=== PATIENT | male | born 1995 | race Hispanic/Latino ===

== ENCOUNTER 2017-11-22 09:45 | Emergency (ER) | payer SELFPAY ==
[2017-11-22 11:14] LABS: #Basophils 0.1 thou/uL (0.0-0.2); #Lymphocytes 1.9 thou/uL (1.20-3.40); #Monocytes 0.3 thou/uL (0.11-0.59); #Neutrophils 3.5 thou/uL (1.40-6.50); %Basophils 0.9 % (0.0-1.0); %Eosinophils 0.8 % (0.0-10.0); %Lymphocytes 32.9 % (21.0-51.0); %Monocytes 4.9 % (0.0-10.0); %Neutrophils 60.5 % (42.0-75.0); Hemoglobin 15.8 g/dL (14.0-18.0); Mean Corpuscular HGB CONC 34.1 g/dL (32.0-36.0); Mean Corpuscular Hemoglobin 31.5 pg (27.0-31.0); Mean Corpuscular Volume 92.4 fL (78.0-98.0); Platelet Count 241 thou/uL (130-400); RBC Distribution Width 11.1 % (11.5-14.5); Red Blood Cell (RBC) Count 5.02 mill/uL (4.70-6.10); White Blood Cell (WBC) Count 5.8 thou/uL (4.8-10.8)
[2017-11-22 11:43] LABS: ALT (SGPT) 12 U/L (8-55); AST (SGOT) 21 U/L (5-34); Albumin 4.5 g/dL (3.5-5.0); Alkaline Phosphatase 103 U/L (40-150); Anion Gap 9 mmol/L (10-20); BUN (Urea Nitrogen) 11 mg/dL (8.9-20.6); Bilirubin, Total 0.5 mg/dL (0.2-1.2); Calc. Creatinine Clearance 0 mL/min (70-130); Calcium 9.6 mg/dL (7.8-10.44); Carbon Dioxide 27 mmol/L (22-29); Chloride 106 mmol/L (98-107); Estimated GFR-MDRD Greater than 90; Globulin 2.8 g/dL (2.4-3.5); Glucose 92 mg/dL (70-105); Potassium 4.2 mmol/L (3.5-5.1); Protein, Total 7.3 g/dL (6.0-8.3); Sodium 138 mmol/L (136-145)
--- NOTE | 2017-11-22 13:02 | CT ---
CT ABDOMEN AND PELVIS WITH CONTRAST: Comparison: None. History: Right upper quadrant abdominal pain. Technique: Multiple contiguous axial images were obtained in a CT of the abdomen and pelvis with cont rast. PO contrast was administered. Coronal reformats were performed. FINDINGS: The liver, gallbladder, kidneys, adrenal glands, spleen, and pancreas are unremarkable. No free air, free fluid, or stranding changes are seen in the abdomen or pelvis. The large and small bowel are unremarkable. The appendix is normal. No abdominal or pelvic lymphadeno sue are seen. The visualized inferior thorax, abdominal wall soft tissues, and osseous structures are unremarkable. IMPRESSION: No evidence of acute intraabdominal/pelvic abnormality. POS: [facility]
[2017-11-22] MEDS ORDERED: Iopamidol 370 76% 50 ML VIAL FS ONE (14:19)
[2017-11-22] MEDS ORDERED: ISOVUE-370 76%-LOCM 1 ML ONE (14:19)
== END 2017-11-22 13:12 | disposition home or self-care (01) ==
LOC: ERS 09:45
DX: K40.90 Unilateral inguinal hernia, without obstruction or gangrene, not specified as recurrent (principal); F17.210 Nicotine dependence, cigarettes, uncomplicated
CPT/HCPCS: 36415; 74177; 80053; 83605; 85025; J2270

== ENCOUNTER 2017-11-28 15:12 | Outpatient (CLI) | payer OTHER | END 2017-11-28 15:13 | disposition home or self-care (01) | LOC: LABBT 15:12 | PROVIDERS: ATTEND Surgery | DX: Z01.812 Encounter for preprocedural laboratory examination (principal); K40.90 Unilateral inguinal hernia, without obstruction or gangrene, not specified as recurrent ==

== ENCOUNTER 2017-12-01 09:04 | Day surgery (SDC) | payer OTHER ==
[2017-11-28 15:30] VITALS: BMI 20.6
[2017-12-01] MEDS ORDERED: CEFAZOLIN/Water 2 GM/20 ML SYRINGE ONE (09:51)
[2017-12-01] MEDS ORDERED: Ondansetron HCl/PF 4 MG/2 ML Vial ONE (10:14)
[2017-12-01] MEDS ORDERED: Dexamethasone 20 MG/5 ML VIAL ONE (10:14)
[2017-12-01] MEDS ORDERED: PROPOFOL 200 MG/20 ML VIAL ONE (10:14)
[2017-12-01] MEDS ORDERED: Ketorolac Tromethamine 30 MG/ML VIAL ONE (10:14)
[2017-12-01] MEDS ORDERED: Lidocaine 1% PF 5 ML VIAL ONE (10:14)
[2017-12-01] MEDS ORDERED: Metoclopramide HCl 10 MG/2 ML VIAL ONE (10:14)
[2017-12-01] MEDS ORDERED: Bupivacaine/Epinephrine 0.25% 30 ML VIAL ONE (10:55)
[2017-12-01] MEDS ORDERED: HYDROmorphone 0.5 MG/0.5 ML SYRINGE ONE (10:58)
[2017-12-01] MEDS ORDERED: Fentanyl 100 MCG/2 ML VIAL ONE (10:58)
[2017-12-01] MEDS ORDERED: Midazolam HCl 2 mg/2 ml Vial ONE (11:04)
--- NOTE | 2017-12-01 12:22 | OP ---
DATE OF PROCEDURE: 12/01/2017 PREOPERATIVE DIAGNOSIS: Right inguinal hernia. SURGEON: Tra Luis M.D. PROCEDURE PERFORMED: Right inguinal hernia repair with mesh. INDICATIONS: A 22-year-old male who came to the emergency room with an incarcerated right inguinal h ernia that was reduced. FINDINGS: Right direct inguinal hernia. DESCRIPTION OF PROCEDURE: After informed consent was obtained, the patient was taken to the operatin g room and given general mask anesthesia and placed in supine position. The abdomen was prepped and draped in usual fashion. Local anesthesia infiltrated subcutaneously and deep. Transverse inguinal incision was performed. Subcu divided sharply. Fascia and external oblique was incised in direction of its fibers through the external ring. Spermatic cord isolated with a [place] drain. Cremasteric fibers . There was no indirect component. There was a direct inguinal hernia that was cir cumscribed and reduced. Reduction maintained with a PHS hernia system placed in the preperitoneal sp graciela. Anterior was laid out, sutured to the pubic tubercle medially with a 2-0 Prolene suture, tucked under the external oblique fascia laterally. A notch was cut out for the spermatic cord. Hemostasi s was assured. The external oblique fascia closed with a running 3-0 Vicryl. Coleman's closed with i nterrupted 3-0 Vicryl and skin closed with a running subcuticular 4-0 Rapide. Steri-Strips applied. Sterile bandage applied. The patient tolerated the procedure well and was transferred to recovery i n good condition. Sponge and needle count verified correct x2.
[2017-12-01] MEDS ORDERED: HYDROcodone/Acetaminophen 5/325 mg Tablet ONE (14:07)
== END 2017-12-01 14:50 | disposition home or self-care (01) ==
LOC: SDC 09:04
PROVIDERS: ATTEND Surgery
PROC: 0YU50JZ Supplement Right Inguinal Region with Synthetic Substitute, Open Approach (ICD-10-PCS; principal; 2017-12-01)
DX: K40.90 Unilateral inguinal hernia, without obstruction or gangrene, not specified as recurrent (principal)
CPT/HCPCS: C1781; J0131; J1100; J1170; J1885; J2001; J2250; J2405; J2704; J2765; J3010

== ENCOUNTER 2020-07-25 21:18 | Inpatient (IN) | payer BC, SELFPAY ==
[~2020-07-25 21:18] MED LIST: Iopamidol-370 76% 500 ML 1 ML ONE
[2020-07-25] MEDS ORDERED: Succinylcholine 200 MG/10 ml SYRINGE FS ONE (21:19)
[2020-07-25] MEDS ORDERED: Tranexamic Acid 1,000 MG/10 ML VIAL ONE (21:25)
[2020-07-25] MEDS ORDERED: Midazolam HCl 2 mg/2 ml Vial ONE (21:30)
[2020-07-25] MEDS ORDERED: Propofol 1,000 MG/100 ML VIAL IV ONE (21:30)
[2020-07-25] MEDS ORDERED: Midazolam HCl 5 mg/ml Vial ONE (21:38)
--- NOTE | 2020-07-25 21:47 | RAD ---
Frontal radiograph chest: 07/25/2020 COMPARISON: None HISTORY: Injury, trauma, pain FINDINGS: There is a nasogastric tube extending into the left upper quadrant. There is an endotrachea l tube in place. There is nonspecific linear interstitial opacity in the perihilar regions and both lung bases, right greater than left. Supine imaging limits assessment for pneumothorax and pleural fl uid. There is a probable lateral left-sided pneumothorax. The patient appears rotated slightly to the right. Nondisplaced seventh and eighth rib fractures are suspected laterally on the right. IMPRESSION: Lines and tubes as detailed above. Interstitial and alveolar opacity, right greater than left. Right-sided rib fractures are noted. Parenchymal opacity may be on the basis of pulmonary contusion, aspiration, or infectious pneumonitis. Possible lateral left-sided pneumothorax. Chest CT advised. Results called to Dr. Beebe 9:44 PM 07/25/2020
[2020-07-25 21:56] LABS: Hemoglobin 14.5 g/dL (14.0-18.0); Mean Corpuscular HGB CONC 32.9 g/dL (32.0-36.0); Mean Corpuscular Hemoglobin 31.7 pg (27.0-31.0); Mean Corpuscular Volume 96.4 fL (78.0-98.0); Mean Platelet Volume 7.6 fL (7.4-10.4); Platelet Count 265 thou/uL (130-400); RBC Distribution Width 11.1 % (11.5-14.5); Red Blood Cell (RBC) Count 4.58 mill/uL (4.70-6.10); White Blood Cell (WBC) Count 25.7 thou/uL (4.8-10.8)
[2020-07-25 21:59] LABS: Medtox Reader # READER 4; THC/Cannabinoid Screen Detected (NotDetected)
[2020-07-25 22:00] LABS: Amphetamine Not Detected (NotDetected); Barbiturates Screen Not Detected (NotDetected); Benzodiazepine Screen Not Detected (NotDetected); Cocaine Metabolite Screen Not Detected (NotDetected); Medtox Control Line Valid? VALID (VALID); Methadone Not Detected (NotDetected); Methamphetamine Not Detected (NotDetected); Opiate Screen Not Detected (NotDetected); Oxycodone Screen Not Detected (NotDetected); Phencyclidine (PCP) Not Detected (NotDetected); Tricyclic Screen Not Detected (NotDetected)
[2020-07-25 22:02] LABS: INR-International Normal Ratio 1.2; PTT 28.1 sec (22.9-36.1); Prothrombin Time 15.2 sec (12.0-14.7)
--- NOTE | 2020-07-25 22:03 | CT ---
Head CT without contrast: 07/25/2020 COMPARISON: 09/14/2014 HISTORY: Injury, trauma, pain TECHNIQUE: Axial CT imaging at 2.5 mm intervals from vertex through skull base without contrast. Kathleen nal and sagittal reformatted imaging obtained. FINDINGS: The right lateral incisor associated with the mandible appears disrupted at its base. There is periorbital and infraorbital soft tissue swelling on the left as well as supraorbital soft tissue swelling on the left. Multifocal scalp swelling noted superiorly, most prominent posteriorly n ear the vertex on the right. There is no intracranial hemorrhage. There is no midline shift or mass effect. The visualized paranasal sinuses/mastoid air cells appear well-aerated. There is no displaced calvari al fracture. IMPRESSION: No intracranial hemorrhage. Soft tissue injuries as detailed above. No displaced calvaria l fracture. Results called to Dr. Beebe at approximately 10:00 PM 07/25/2020
[2020-07-25 22:05] LABS: Bilirubin Negative (Negative); Blood, Urine 2+ (Negative); Clarity Clear (Clear); Glucose, Urine (Dipstick) Normal (Negative); Ketone, Urine Negative (Negative); Leukocyte Negative Leu/uL (Negative); Nitrite Negative (Negative); Protein, Urine (Dipstick) 70 mg/dL (Neg-Trace); RBC/HPF 0-3 HPF (0-3); Specific Gravity, Urine 1.004 (1.002-1.036); Squamous Epithelial None Seen HPF (0-3); Urobilinogen Normal mg/dL (Less than 2)
--- NOTE | 2020-07-25 22:06 | CT ---
Cervical spine CT without contrast: 07/25/2020 HISTORY: Injury, trauma TECHNIQUE: Axial CT imaging at 1.25 mm intervals through the cervical spine with coronal and sagittal reformatted imaging FINDINGS: The C1 ring is intact. The craniocervical junction, the atlantoaxial interspace, and the cervicothoracic junction demonstrat e no acute findings. The occipital condyles, the dens, and the C1-2 articulation appear within normal limits. Incompletely imaged endotracheal tube and nasogastric tube present. Visualized lung apices demonstrate a left-sided pneumothorax as well as extensive nonspecific airspac e disease within the right lung apex. No displaced cervical spine fracture or evidence of dislocation. IMPRESSION: Left pneumothorax with extensive right upper lobe airspace disease. No displaced cervical spine fracture or dislocation. Results called to Dr. Beebe at 10:00 PM 07/25/2020
--- NOTE | 2020-07-25 22:09 | CT ---
CT facial bones: 07/25/2020 COMPARISON: None HISTORY: Injury, trauma, pain TECHNIQUE: Axial CT imaging at 2.5 mm intervals through the facial bones with coronal and sagittal re formatted imaging. FINDINGS: There is supraorbital soft tissue swelling on the left. There is periorbital and infraorbit al soft tissue swelling on the left. There is incompletely imaged endotracheal tube and nasogastric tube noted. There is scalp swelling ne ar the vertex posteriorly on the right and laterally on the left. The frontal sinuses, maxillary sinuses, sphenoid sinuses, and the ethmoid air cells appear well-aerat ed. The nasal bones, the zygomatic arches, and the pterygoid plates appear intact. Neither temporomandibu lar joint appears dislocated. No evidence for a mandibular fracture is seen. The lateral incisor associated with the mandible on the right is disrupted at its root. Coronal reformatted imaging demonstrates no evidence for fracture of the orbital floor or the medial orbital wall on either side. IMPRESSION: No facial bone fracture noted.
[2020-07-25 22:10] LABS: ALT (SGPT) 197 U/L (8-55); AST (SGOT) 337 U/L (5-34); Albumin 4.3 g/dL (3.5-5.0); Alcohol 307 mg/dL (Less than 10); Alkaline Phosphatase 116 U/L (40-110); Anion Gap 19 mmol/L (10-20); BUN (Urea Nitrogen) 13 mg/dL (8.9-20.6); Bilirubin, Total 0.4 mg/dL (0.2-1.2); Calc. Creatinine Clearance 0 mL/min (70-130); Calcium 8.3 mg/dL (7.8-10.44); Carbon Dioxide 17 mmol/L (22-29); Chloride 108 mmol/L (98-107); Glucose 178 mg/dL (70-105); Lipase 75 U/L (8-78); Potassium 3.7 mmol/L (3.5-5.1); Protein, Total 7.3 g/dL (6.0-8.3); Sodium 140 mmol/L (136-145)
[2020-07-25] MEDS ORDERED: Boostrix 0.5 ML (Tdap) VIAL ONE (22:12)
[2020-07-25 22:14] LABS: Band 3 % (5-11); Lymphocytes 33 % (21-51); MDiff Complete? YES; Monocytes 6 % (0-10); Neutrophil 58 % (42-75); Platelet Morphology Comment Appears Adequate; RBC Morphology Normal
[2020-07-25] MEDS ORDERED: Bupivacaine 0.5% 10 ML VIAL ONE (22:16)
[2020-07-25] MEDS ORDERED: Lidocaine 1% w/Epinephrine 1:100K 20 ML VIAL ONE (22:16)
[2020-07-25 22:17] LABS: Actual Bicarbonate (HCO3a) 17.9 mEq/L (22-28); Analyzer IN Cardio ER; Base Excess (BEa) -9.4 mEq/L (-2.0 to +3.0); CO2 Tension 44.1 mmHg (35.0-45.0); Calcium, Ionized (arterial) 1.13 mmol/L (1.12-1.30); Carboxyhemoglobin (COHb) 0.1 gm% (0.0-3.0); Hemoglobin (Hb) 13.4 g/dL (14.0-18.0); O2 Tension (PaO2), arterial 68.2 mmHg (80.0-100.0)
[2020-07-25 22:20] LABS: Bacteria/HPF None Seen HPF (None Seen)
[2020-07-25 22:21] LABS: Puncture Site RRA; pH, Arterial 7.23 (7.35-7.45)
[2020-07-25 22:22] LABS: ALV-art Gradient 589.675 mmHg (0-20)
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
[2020-07-25] MEDS ORDERED: Ampicillin/Sulbactam 3 GM in Sodium Chloride 0.9% 100 ML IVPB SCH (22:30)
--- NOTE | 2020-07-25 22:30 | RAD ---
Frontal radiograph pelvis: 07/25/2020 COMPARISON: None HISTORY: Trauma FINDINGS: There is a fracture involving the base of the L4 transverse process on the left. No widenin g of the sacroiliac joints or pubic symphysis. Neither hip appears dislocated. IMPRESSION: Fracture of the left L4 transverse process.
[2020-07-25] MEDS ORDERED: Ondansetron PF 4 MG/2 ML Vial IVP PRN (23:06)
[2020-07-25] MEDS ORDERED: Dextrose 50% Abboject 50 ML SYRINGE SLOW IVP PRN (23:06)
[2020-07-25] MEDS ORDERED: Dextrose 5% in Water 1,000 ML IV PRN (23:06)
[2020-07-25] MEDS ORDERED: Ventilator Sedation Protocol 1 EACH FS SCH (23:15)
--- NOTE | 2020-07-25 23:35 | RAD ---
Portable frontal chest radiograph: 07/25/2020 COMPARISON: 07/25/2020 HISTORY: Chest tube placement FINDINGS: There is worsening focal opacity within the right lung base suggesting right lower lobe con solidation/collapse and/or worsening right pulmonary contusion. Improved aeration is noted within the right upper lobe. There is a new left-sided chest tube. There is patchy interstitial and alveolar opacity centrally within the left lung. There is small volume subcutaneous gas along the lateral aspect of the mid left hemithorax. Stable endotracheal tube and nasogastric tube. IMPRESSION: Lines and tubes as detailed above. Interstitial and alveolar opacity in the left perihila r regions suggest contusion. There is worsening opacity within the right base suggesting right basilar consolidation/collapse. There is improved aeration within the right upper lobe.
--- NOTE | 2020-07-25 23:37 | RAD ---
4 views left elbow: 07/25/2020 COMPARISON: None HISTORY: Injury, trauma, pain FINDINGS: There is diffuse soft tissue swelling, most prominent involving the lateral aspect of the l eft arm at the level of the left elbow. There is probable soft tissue laceration lateral to the mid and distal left humerus. No discrete elbow joint effusion, displaced fracture, or evidence of disloca tion. Foci of gas noted within the soft tissues lateral to the distal left humerus consistent with laceration. IMPRESSION: Soft tissue injury. No displaced fracture or evidence of dislocation is seen.
--- NOTE | 2020-07-25 23:38 | RAD ---
Left forearm 2 views: 07/25/2020 COMPARISON: None HISTORY: Injury, trauma, pain FINDINGS: No fracture or dislocation. Soft tissue swelling and subcutaneous gas noted lateral to the distal left humerus suggesting laceration. IMPRESSION: No displaced fracture of the left radius or ulna.
--- NOTE | 2020-07-25 23:38 | RAD ---
2 views left humerus: 07/25/2020 COMPARISON: None HISTORY: Injury, trauma, pain FINDINGS: Nondisplaced comminuted fracture of the left scapular body. No displaced left humerus fract ure. IMPRESSION: No displaced left humerus fracture. Left scapular fracture.
[2020-07-25 23:40] LABS: SARS-CoV-2 NAA Rapid Test Not Detected (NotDetected)
[2020-07-25] MEDS ORDERED: Fentanyl BOLUS 250 ML IVPB PRN (23:45)
[2020-07-25] MEDS ORDERED: Propofol BOLUS 1,000 MG/100 ML VIAL IV PRN (23:45)
[2020-07-25] MEDS ORDERED: Morphine 2 MG/ML VIAL SLOW IVP PRN (23:45)
[2020-07-25] MEDS ORDERED: DISCONTINUE PREVIOUS NARCOTIC PAIN MEDICATIONS AND BENZODIAZEPINES FS SCH (23:45)
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
[2020-07-26 01:13] VITALS: BMI 20.4
[2020-07-26] MEDS: Lactated Ringer's 1,000 ML IV SCH ×3 (02:42→19:16)
[2020-07-26 04:00] LABS: Anion Gap 15 mmol/L (10-20); BUN (Urea Nitrogen) 11 mg/dL (8.9-20.6); Calc. Creatinine Clearance 134 mL/min (70-130); Calcium 7.4 mg/dL (7.8-10.44); Carbon Dioxide 16 mmol/L (22-29); Chloride 114 mmol/L (98-107); Glucose 96 mg/dL (70-105); Magnesium 1.5 mg/dL (1.6-2.6); Phosphorus 2.4 mg/dL (2.3-4.7); Potassium 3.4 mmol/L (3.5-5.1); Sodium 142 mmol/L (136-145)
[2020-07-26 04:01] LABS: Band 22 % (5-11); Hemoglobin 12.6 g/dL (14.0-18.0); Hypochromia SLIGHT = 6-15 cells (100X) (0-5/hpf); Lymphocytes 20 % (21-51); MDiff Complete? YES; Mean Corpuscular Hemoglobin 32.5 pg (27.0-31.0); Mean Corpuscular Volume 95.8 fL (78.0-98.0); Mean Platelet Volume 7.5 fL (7.4-10.4); Monocytes 5 % (0-10); Neutrophil 53 % (42-75); Platelet Count 201 thou/uL (130-400); Platelet Morphology Comment Appears Adequate; RBC Distribution Width 11.1 % (11.5-14.5); Red Blood Cell (RBC) Count 3.87 mill/uL (4.70-6.10); White Blood Cell (WBC) Count 19.1 thou/uL (4.8-10.8)
[2020-07-26] MEDS: Propofol 1,000 MG/100 ML VIAL IV PRN ×4 (04:09→20:54)
[2020-07-26] MEDS: Ampicillin/Sulbactam 3 GM in Sodium Chloride 0.9% 100 ML IVPB SCH ×3 (05:32→17:45)
[2020-07-26 07:05] LABS: Actual Bicarbonate (HCO3a) 18.3 mEq/L (22-28); Base Excess (BEa) -6.6 mEq/L (-2.0 to +3.0); CO2 Tension 34.3 mmHg (35.0-45.0); Calcium, Ionized (arterial) 1.13 mmol/L (1.12-1.30); Carboxyhemoglobin (COHb) 0.3 gm% (0.0-3.0); Hemoglobin (Hb) 12.6 g/dL (14.0-18.0); O2 Tension (PaO2), arterial 131.6 mmHg (80.0-100.0); Potassium - ABG Lab 3.56 mmol/L (3.70-5.30); pH, Arterial 7.34 (7.35-7.45)
[2020-07-26 07:21] LABS: ALV-art Gradient 110.725 mmHg (0-20); Puncture Site RRA
[2020-07-26] MEDS: Famotidine/PF 20 mg/2ml Vial SLOW IVP SCH ×2 (08:21→20:54)
[2020-07-26] MEDS ORDERED: Potassium Chloride 40 MEQ in Sodium Chloride 0.9% 250 ML 250 ML IV SCH (08:45)
[2020-07-26] MEDS ORDERED: Magnesium 2 GM/50 ML 2 GM in Premix Bag 1 BAG IVPB SCH (08:45)
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
[2020-07-26] MEDS: Lorazepam 2 MG/ML VIAL SLOW IVP PRN (09:04)
[2020-07-26] MEDS: Oxazepam 10 MG CAP PO SCH (09:39)
[2020-07-26] MEDS: Acetaminophen 325 MG TAB PO SCH ×3 (09:39→20:58)
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
--- NOTE | 2020-07-26 10:07 | RAD ---
PORTABLE CHEST: COMPARISON: Prior day's study. HISTORY: Respiratory distress. FINDINGS: Endotracheal and NG tubes remain in satisfactory position. Left chest tube remains unchanged in posi tion. No signs of pneumothorax. Parenchymal lung changes appear stable as compared to the prior exa m. IMPRESSION: Stable exam. POS: OFF
[2020-07-26] MEDS ORDERED: Sodium Chloride 0.9% 500 ML IVPB SCH (10:15)
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
[2020-07-26] MEDS ORDERED: Fentanyl CADD 100 ML ONE (14:52)
[2020-07-26] MEDS: Fentanyl CADD 100 ML IV SCH (14:55)
[2020-07-26] MEDS ORDERED: Lidocaine 1% (PF) 30 ML VIAL ONE (15:25)
--- NOTE | 2020-07-26 15:35 | RAD ---
PORTABLE CHEST: Comparison: Earlier exam, same date. History: Endotracheal tube placement. Respiratory distress. FINDINGS: Endotracheal and NG tubes remain in satisfactory position. Left chest tube is unchanged in position. Parenchymal lung changes are stable. IMPRESSION: Stable exam. POS: OFF
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
--- NOTE | 2020-07-26 16:23 | RAD ---
Frontal radiograph chest: 07/26/2020 at 4:03 PM COMPARISON: 07/26/2020 at 2:35 PM HISTORY: Evaluate following right chest tube placement FINDINGS: There is a stable superior/lateral left-sided chest tube. Stable endotracheal tube and naso gastric tube. There is a new superior medial right chest tube. There is a small pneumothorax in the right lung base laterally and medially in the cardiophrenic angle region. There is hazy perihilar den sity bilaterally with focal airspace disease within the right lung base, similar when compared to prior imaging. Multiple inferior lateral right-sided rib fractures are again noted. There is a left scapular fractur e seen. Supine imaging limits assessment for pneumothorax and pleural fluid. IMPRESSION: Portable chest radiograph as detailed above.
--- NOTE | 2020-07-26 19:07 | PRG ---
DATE OF SERVICE: 07/26/2020 SUBJECTIVE: The patient is on SIMV 20-550-0.4-45 with peakl pressures of 15. We have reduced his sedation, started him on Precedex. We are going to attempt to wean the ventilator. SpO2 is 100, and his respiratory rate is 16. Once we started to reduce his sedation, the patient became acutely agitated; however, the mother at the bedside tried to calm the patient. Heart rate increased. We increased the Precedex dosing; however, this did not improve, and the patient became wild, started thrashing. Therefore, we resedated him. He did have a brief period of hypoxemia for which he had BVM ventilations. We aggressively suctioned and lavaged the patient; even though he did not have much secretions prior to the attempt of TSB, he had thin brown secretions noted. Concern for gastric aspirate probably while altered prior to intubation overnight. We re-sedated him and got a repeat chest x-ray. Of note, on the repeat chest x-ray, it demonstrated what was concerning for a right hemothorax given his pulmonary lacerations, we reviewed the chest imaging with Dr. Johnson and he suggested right tube thoracostomy placement for drainage. I have updated the patient's mother at the bedside. She was present for the entirety of the event. She consented to the chest tube. She left as this was a sterile procedure. The patient recovered quite nicely. He was saturating 100%. I was able to start weaning down his FiO2. We will keep on the ventilator and sedated for tonight and start to wean him again tomorrow. Of note, originally. It was thought that he was motioning that he wanted to drink alcohol and we noted that he was intoxicated. He was started on Serax. It did help initially, but after I talked to the mother, he does not drink daily, only occasionally. Therefore, we have suspended the Serax dosing. The patient is now hemodynamically stable. He does have a right tube thoracostomy. Please see separate documentation. Family was updated ad nauseam, coordinated with Dr. Johnson as well as the nursing staff. Of note, per the mother, the patient gets acutely agitated, has a bad temper. He was following commands. When we lightened his sedation, he just would not stay calm enough for us to attempt extubation. Hope that with the Precedex drip, we will be able to achieve sedation to where we were able to successfully evaluate his pulmonary status and possibly liberate him from the ventilator in the ensuing days. Job ID: [id number] [facility]
--- NOTE | 2020-07-26 19:29 | OP ---
DATE OF PROCEDURE: 07/26/2020 PROCEDURE PERFORMED: Right tube thoracostomy. INDICATION: Hemothorax. Consent signed by mother at the bedside. Risks and benefits were explained in detail and agreed to the same. Performed by myself. DESCRIPTION OF PROCEDURE: Patient was prepped and draped in the usual fashion. 4% chlorhexidine was used to cleanse the skin in the right axillary and mid axillary space from the 1st to the 7th rib. His right arm was secured above his head. Sterile OR towels were used to create a field. Hand hygiene was performed prior to the procedure. Sterile gloves, gown, eye protection, mask and hair protection were donned. The skin was anesthetized with 1% lidocaine, a total of 15 mL. The anesthesia was taken down through the soft tissues into the pleura. Air was returned to the pleura and periosteum was anesthetized locally. The patient was on sedation and mechanical ventilation during the procedure. Vital signs, SpO2, and heart rate were monitored. Next, a single linear incision was made through the skin, blunt dissection through the soft tissues to the pleura were made. Kellys were used to enter the pleura. A small bit of air was noted. The track was then dilated. A gloved finger was placed through the track into the chest cavity. There was no adhesions noted. Next, a 32-Telugu chest tube was inserted into the pleura. Initially, I was getting resistance between 6 and 8 cm and could not further able to redirect the chest tube trying to direct it posteriorly as this was primarily for a hemothorax, although there was a small pneumothorax noted on the right. I was able to get the chest tube seated and easily pass to 13 cm. It was secured in place with 0 Vicryl suture and Xeroform gauze. It was connected to Pleur-evac and suction at 20 cm of water. Initial output was approximately 150 mL of bloody discharge. Bulky dressing was placed as well as tape and a zip tie this was secured to the patient's side. Blood loss from the procedure, was less than 5 mL. Complications none. Chest x-ray demonstrates good placement of the chest tube along the right mediastinum facing caudally. The patient tolerated the procedure well. Job ID: [id number] [facility]
[2020-07-26] MEDS ORDERED: FLU VACC QS2020-21(6MOS UP)/PF 60 MCG/0.5 ML SYRINGE IM ONE (21:00)
[2020-07-27] MEDS: Ampicillin/Sulbactam 3 GM in Sodium Chloride 0.9% 100 ML IVPB SCH ×5 (00:15→23:08)
[2020-07-27] MEDS: Lactated Ringer's 1,000 ML IV SCH ×3 (03:33→23:03)
[2020-07-27 03:53] LABS: #Eosinphils 0.1 thou/uL (0.0-0.7); #Lymphocytes 1.6 thou/uL (1.20-3.40); #Monocytes 0.5 thou/uL (0.11-0.59); #Neutrophils 9.7 thou/uL (1.40-6.50); %Basophils 0.4 % (0.0-1.0); %Eosinophils 0.7 % (0.0-10.0); %Lymphocytes 13.1 % (21.0-51.0); %Monocytes 3.8 % (0.0-10.0); %Neutrophils 81.9 % (42.0-75.0); Hemoglobin 9.1 g/dL (14.0-18.0); Mean Corpuscular HGB CONC 34.3 g/dL (32.0-36.0); Mean Corpuscular Hemoglobin 32.5 pg (27.0-31.0); Mean Corpuscular Volume 94.7 fL (78.0-98.0); Mean Platelet Volume 7.4 fL (7.4-10.4); Platelet Count 143 thou/uL (130-400); RBC Distribution Width 11.1 % (11.5-14.5); Red Blood Cell (RBC) Count 2.79 mill/uL (4.70-6.10); White Blood Cell (WBC) Count 11.8 thou/uL (4.8-10.8)
[2020-07-27 04:14] LABS: Anion Gap 10 mmol/L (10-20); BUN (Urea Nitrogen) 11 mg/dL (8.9-20.6); Calc. Creatinine Clearance 153 mL/min (70-130); Carbon Dioxide 20 mmol/L (22-29); Chloride 109 mmol/L (98-107); Glucose 93 mg/dL (70-105); Magnesium 1.7 mg/dL (1.6-2.6); Phosphorus 1.7 mg/dL (2.3-4.7); Potassium 3.7 mmol/L (3.5-5.1); Sodium 135 mmol/L (136-145)
[2020-07-27] MEDS: Acetaminophen 325 MG TAB PO SCH ×4 (04:35→21:06)
[2020-07-27] MEDS: Propofol 1,000 MG/100 ML VIAL IV PRN ×4 (05:18→23:14)
[2020-07-27] MEDS ORDERED: Potassium Phosphate 30 MMOL in Sodium Chloride 0.9% 500 ML IVPB SCH (07:00)
[2020-07-27] MEDS ORDERED: Magnesium 2 GM/50 ML 2 GM in Premix Bag 1 BAG IVPB SCH (07:00)
[2020-07-27] MEDS ORDERED: Magnesium Sulfate 3 GM in Sodium Chloride 0.9% 100 ML IV SCH (07:00)
[2020-07-27] MEDS ORDERED: Potassium Phosphate 30 MMOL, Magnesium Sulfate 3 GM in Sodium Chloride 0.9% 250 ML 250 ML IVPB SCH (07:30)
[2020-07-27] MEDS ORDERED: SODIUM CHLORIDE 0.9% IVPB SCH ×2 (07:30→07:45)
[2020-07-27] MEDS ORDERED: SODIUM PHOSPHATE IVPB SCH ×2 (07:30→07:45)
--- NOTE | 2020-07-27 07:43 | RAD ---
EXAM: XR Chest 1 View Portable PROVIDED CLINICAL HISTORY: Respiratory failure post tracheostomy. COMPARISON: 07/26/2020 FINDINGS: Endotracheal tube, nasogastric tube, and bilateral thoracostomy tubes remain in place. No obvious pne umothorax is seen on this exam. Dense opacity is present at the right lung base. There is increased interstitial and alveolar left perihilar opacity present. Subcutaneous emphysema is seen about the ri ght lateral chest. Cardiac silhouette is within normal limits. There is a fracture of the lateral right sixth and seventh ribs. No other interval change. IMPRESSION: 1. Bilateral thoracostomy tubes in place. No obvious pneumothorax is appreciated. 2. Dense opacity at the right lung base which has increased when compared to prior exam with increase d patchy opacities left perihilar region. Findings could be related to areas of pulmonary contusion and associated atelectasis. Pleural effusion right lung base is a possibility. 3. Right-sided rib fractures.
[2020-07-27] MEDS ORDERED: MAGNESIUM SULFATE IVPB SCH (07:45)
[2020-07-27] MEDS: Lorazepam 2 MG/ML VIAL SLOW IVP PRN ×2 (09:39→21:27)
[2020-07-27] MEDS ORDERED: Vecuronium 10 MG VIAL ONE (10:06)
[2020-07-27] MEDS ORDERED: Water For Injection,Sterile 20 ML ONE (10:06)
[2020-07-27] MEDS ORDERED: Fentanyl 100 MCG/2 ML VIAL SLOW IVP SCH (10:15)
[2020-07-27] MEDS ORDERED: Vecuronium 10 MG VIAL IVP SCH (10:15)
[2020-07-27] MEDS: Saccharomyces boulardii 250 MG CAP PO SCH (10:49)
[2020-07-27] MEDS: Senokot S 8.6-50 MG TAB PO SCH ×2 (10:49→21:06)
[2020-07-27] MEDS: Polyethylene Glycol 3350 17 GM Packet PO SCH (10:51)
[2020-07-27] MEDS: Famotidine/PF 20 mg/2ml Vial SLOW IVP SCH ×2 (10:51→21:07)
[2020-07-27 12:05] LABS: Actual Bicarbonate (HCO3a) 21.8 mEq/L (22-28); CO2 Tension 33.3 mmHg (35.0-45.0); Calcium, Ionized (arterial) 1.14 mmol/L (1.12-1.30); Carboxyhemoglobin (COHb) 0.2 gm% (0.0-3.0); Hemoglobin (Hb) 9.6 g/dL (14.0-18.0); O2 Tension (PaO2), arterial 162.6 mmHg (80.0-100.0); Potassium - ABG Lab 3.75 mmol/L (3.70-5.30); pH, Arterial 7.43 (7.35-7.45)
[2020-07-27 12:07] LABS: Puncture Site RBA
[2020-07-27 12:08] LABS: ALV-art Gradient 508.775 mmHg (0-20)
[2020-07-27] MEDS: Fentanyl CADD 100 ML IV SCH (14:10)
[2020-07-27 22:18] LABS: #Basophils 0.1 thou/uL (0.0-0.2); #Eosinphils 0.2 thou/uL (0.0-0.7); #Lymphocytes 1.6 thou/uL (1.20-3.40); #Monocytes 0.6 thou/uL (0.11-0.59); #Neutrophils 10.7 thou/uL (1.40-6.50); %Basophils 0.4 % (0.0-1.0); %Eosinophils 1.5 % (0.0-10.0); %Lymphocytes 12.2 % (21.0-51.0); %Monocytes 4.6 % (0.0-10.0); %Neutrophils 81.3 % (42.0-75.0); Mean Corpuscular HGB CONC 34.2 g/dL (32.0-36.0); Mean Corpuscular Volume 96.5 fL (78.0-98.0); Mean Platelet Volume 7.6 fL (7.4-10.4); Platelet Count 137 thou/uL (130-400); Red Blood Cell (RBC) Count 2.74 mill/uL (4.70-6.10); White Blood Cell (WBC) Count 13.2 thou/uL (4.8-10.8)
[2020-07-27 22:40] LABS: Anion Gap 10 mmol/L (10-20); BUN (Urea Nitrogen) 9 mg/dL (8.9-20.6); CK (CPK) 2754 U/L (30-200); Calc. Creatinine Clearance 150 mL/min (70-130); Calcium 7.8 mg/dL (7.8-10.44); Carbon Dioxide 23 mmol/L (22-29); Chloride 109 mmol/L (98-107); Glucose 82 mg/dL (70-105); Magnesium 1.9 mg/dL (1.6-2.6); Potassium 3.3 mmol/L (3.5-5.1); Sodium 139 mmol/L (136-145)
[2020-07-27 22:46] LABS: Phosphorus 1.9 mg/dL (2.3-4.7)
[2020-07-27] MEDS ORDERED: Potassium Phosphate 30 MMOL in Sodium Chloride 0.9% 250 ML 250 ML IVPB SCH (23:00)
[2020-07-27] MEDS ORDERED: Sodium Bicarbonate 150 MEQ in Dextrose 5% in Water 1,000 ML IV SCH (23:00)
[2020-07-27] MEDS: Oxazepam 10 MG CAP PO SCH (23:03)
[2020-07-28] MEDS: Lactated Ringer's 1,000 ML IV SCH (03:53)
[2020-07-28] MEDS: Acetaminophen 325 MG TAB PO SCH ×4 (03:53→18:21)
[2020-07-28 03:58] LABS: #Eosinphils 0.3 thou/uL (0.0-0.7); #Lymphocytes 1.8 thou/uL (1.20-3.40); #Monocytes 0.6 thou/uL (0.11-0.59); #Neutrophils 8.6 thou/uL (1.40-6.50); %Basophils 0.3 % (0.0-1.0); %Eosinophils 2.3 % (0.0-10.0); %Lymphocytes 16.3 % (21.0-51.0); %Neutrophils 76.2 % (42.0-75.0); Hemoglobin 8.7 g/dL (14.0-18.0); Mean Corpuscular HGB CONC 33.9 g/dL (32.0-36.0); Mean Corpuscular Hemoglobin 32.2 pg (27.0-31.0); Mean Platelet Volume 7.6 fL (7.4-10.4); Platelet Count 138 thou/uL (130-400); Red Blood Cell (RBC) Count 2.69 mill/uL (4.70-6.10); White Blood Cell (WBC) Count 11.3 thou/uL (4.8-10.8)
[2020-07-28] MEDS ORDERED: Fentanyl CADD 100 ML ONE (04:20)
[2020-07-28] MEDS: Fentanyl CADD 100 ML IV SCH (04:22)
[2020-07-28 04:38] LABS: Anion Gap 11 mmol/L (10-20); BUN (Urea Nitrogen) 8 mg/dL (8.9-20.6); CK (CPK) 2549 U/L (30-200); Calc. Creatinine Clearance 157 mL/min (70-130); Calcium 7.6 mg/dL (7.8-10.44); Carbon Dioxide 23 mmol/L (22-29); Chloride 108 mmol/L (98-107); Glucose 99 mg/dL (70-105); Magnesium 1.8 mg/dL (1.6-2.6); Phosphorus 3.2 mg/dL (2.3-4.7); Potassium 3.3 mmol/L (3.5-5.1); Sodium 139 mmol/L (136-145)
[2020-07-28] MEDS: Ampicillin/Sulbactam 3 GM in Sodium Chloride 0.9% 100 ML IVPB SCH ×3 (05:43→17:41)
[2020-07-28] MEDS: Propofol 1,000 MG/100 ML VIAL IV PRN ×2 (05:43→11:55)
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
[2020-07-28] MEDS ORDERED: Potassium Phosphate 40 MMOL in Sodium Chloride 0.9% 250 ML 250 ML IVPB SCH (07:15)
[2020-07-28] MEDS: Furosemide 20 MG/2 ML VIAL SLOW IVP SCH ×2 (08:00→15:44)
--- NOTE | 2020-07-28 08:05 | RAD ---
CHEST 1 VIEW: Date: 07/28/2020 COMPARISON: 07/27/2020. 07/26/2020. HISTORY: Respiratory failure. Status post tracheostomy. FINDINGS: There is evidence of an endotracheal tube, nasogastric tube, left and right-sided chest tubes. Normal cardiac silhouette. Pulmonary vessels and hilum are normal. There is a right-sided pleural effusion with opacification of the right lower lobe. Additional patchy interstitial opacities throughout the l fouzia parenchyma are identified. Right rib fractures are once again demonstrated. No pneumothorax on this semiupright radiograph. IMPRESSION: No significant interval change. POS: PPP
[2020-07-28 09:12] LABS: Actual Bicarbonate (HCO3a) 28.7 mEq/L (22-28); CO2 Tension 43.6 mmHg (35.0-45.0); Calcium, Ionized (arterial) 1.06 mmol/L (1.12-1.30); Carboxyhemoglobin (COHb) 0.3 gm% (0.0-3.0); Hemoglobin (Hb) 9.8 g/dL (14.0-18.0); Potassium - ABG Lab 3.08 mmol/L (3.70-5.30); pH, Arterial 7.44 (7.35-7.45)
[2020-07-28 09:13] LABS: O2 Tension (PaO2), arterial 52.7 mmHg (80.0-100.0)
[2020-07-28 09:14] LABS: Puncture Site RRA
[2020-07-28] MEDS: Senokot S 8.6-50 MG TAB PO SCH ×2 (09:16→20:28)
[2020-07-28] MEDS: Famotidine/PF 20 mg/2ml Vial SLOW IVP SCH ×2 (09:16→20:28)
[2020-07-28] MEDS: Polyethylene Glycol 3350 17 GM Packet PO SCH (09:16)
[2020-07-28] MEDS: Saccharomyces boulardii 250 MG CAP PO SCH (09:16)
[2020-07-28] MEDS ORDERED: Lactated Ringer's 1,000 ML IV SCH (09:30)
[2020-07-28] MEDS ORDERED: traMADol HCl 50 MG TAB PO PRN (15:57)
--- NOTE | 2020-07-28 16:12 | RAD ---
EXAM: 2 views of the left wrist HISTORY: Wrist pain COMPARISON: None FINDINGS: 2 views of the left wrist shows no evidence of acute fracture or dislocation. No soft tissu e swelling is seen. No degenerative changes are present. IMPRESSION: No evidence of acute osseous abnormality.
[2020-07-28] MEDS: Acetaminophen 650 MG/20.3 ML UDCUP PO SCH (16:33)
[2020-07-28] MEDS ORDERED: traMADol HCl 50 MG TAB PO SCH (18:00)
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
[2020-07-28] MEDS: Cyclobenzaprine 10 MG TAB PO PRN (20:28)
[2020-07-28] MEDS: Gabapentin 300 MG CAP PO SCH (20:29)
[2020-07-28] MEDS: Enoxaparin Sodium 30 MG/0.3 ML SYRINGE SC SCH (20:29)
[2020-07-28] MEDS ORDERED: Gabapentin 300 MG CAP PO SCH (21:00)
[2020-07-28] MEDS ORDERED: Acetaminophen 650 MG/20.3 ML UDCUP PO SCH (21:00)
[2020-07-29] MEDS: Acetaminophen 650 MG/20.3 ML UDCUP PO SCH ×8 (00:29→21:51)
[2020-07-29] MEDS: Ibuprofen 600 MG TAB PO SCH ×2 (00:29→10:05)
[2020-07-29] MEDS: Furosemide 20 MG/2 ML VIAL SLOW IVP SCH (00:30)
[2020-07-29] MEDS: traMADol HCl 50 MG TAB PO SCH ×2 (00:30→07:49)
[2020-07-29 03:42] LABS: #Eosinphils 0.1 thou/uL (0.0-0.7); #Lymphocytes 0.8 thou/uL (1.20-3.40); #Monocytes 0.5 thou/uL (0.11-0.59); #Neutrophils 9.6 thou/uL (1.40-6.50); %Basophils 0.1 % (0.0-1.0); %Eosinophils 0.7 % (0.0-10.0); %Lymphocytes 7.5 % (21.0-51.0); %Monocytes 4.2 % (0.0-10.0); %Neutrophils 87.6 % (42.0-75.0); Hemoglobin 9.2 g/dL (14.0-18.0); Mean Corpuscular HGB CONC 34.5 g/dL (32.0-36.0); Mean Corpuscular Hemoglobin 32.7 pg (27.0-31.0); Mean Corpuscular Volume 94.8 fL (78.0-98.0); Mean Platelet Volume 7.3 fL (7.4-10.4); Platelet Count 178 thou/uL (130-400); RBC Distribution Width 11.1 % (11.5-14.5); Red Blood Cell (RBC) Count 2.82 mill/uL (4.70-6.10)
[2020-07-29 04:04] LABS: Anion Gap 13 mmol/L (10-20); BUN (Urea Nitrogen) 5 mg/dL (8.9-20.6); CK (CPK) 3721 U/L (30-200); Calc. Creatinine Clearance 142 mL/min (70-130); Calcium 8.6 mg/dL (7.8-10.44); Carbon Dioxide 27 mmol/L (22-29); Chloride 104 mmol/L (98-107); Glucose 112 mg/dL (70-105); Magnesium 2.1 mg/dL (1.6-2.6); Sodium 141 mmol/L (136-145)
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
[2020-07-29] MEDS ORDERED: Potassium Chloride 40 MEQ in Premix Bag 1 BAG IVPB SCH (07:30)
[2020-07-29] MEDS ORDERED: Potassium Chloride 40 MEQ in Sodium Chloride 0.9% 250 ML 250 ML IV SCH (07:45)
--- NOTE | 2020-07-29 07:54 | RAD ---
Chest one view HISTORY: Pneumothorax. Chest tube seal broken. COMPARISON: Earlier exam on the same date. FINDINGS: Cardiac silhouette and pulmonary vasculature are unremarkable. Mediastinum remains midline. Parenchymal opacity consistent with contusion at the right lateral lung base is stable. Bilateral thoracostomy tubes are unchanged in position. Left lung now completely inflated without sig nificant residual pneumothorax. Bilateral chest wall gas, mediastinal and lower neck gas again demonstrated. IMPRESSION : Interval resolution of left pneumothorax. No new abnormalities are demonstrated.
--- NOTE | 2020-07-29 08:04 | RAD ---
Frontal radiograph chest: 07/29/2020 at 3:34 AM COMPARISON: 07/28/2020 HISTORY: Evaluate chest tube FINDINGS: Bilateral chest tubes are present. There is a new moderate sized pneumothorax on the left. There is subcutaneous emphysema within the chest wall bilaterally. No discrete right pneumothorax. Heart and mediastinal contours are stable. Nonspecific hazy parenchymal opacity noted in the perihila r regions There is subcutaneous emphysema within the supraclavicular regions bilaterally. Subcutaneous gas on t his examination is new. There has been interval removal of the endotracheal tube and nasogastric tube. IMPRESSION: New left pneumothorax. New bilateral small volume subcutaneous emphysema. Stable bilatera l chest tubes.
[2020-07-29] MEDS: Gabapentin 300 MG CAP PO SCH ×5 (08:49→21:50)
[2020-07-29] MEDS: Senokot S 8.6-50 MG TAB PO SCH ×3 (08:49→20:30)
[2020-07-29] MEDS: Famotidine 20 MG TAB PO SCH ×2 (08:49→20:30)
[2020-07-29] MEDS: Polyethylene Glycol 3350 17 GM Packet PO SCH ×2 (08:50→14:31)
[2020-07-29] MEDS: Enoxaparin Sodium 30 MG/0.3 ML SYRINGE SC SCH ×2 (08:50→20:30)
[2020-07-29] MEDS: Cyclobenzaprine 10 MG TAB PO PRN (09:29)
[2020-07-29] MEDS ORDERED: Acetaminophen W/ Codeine 5 ML UDCUP PO SCH (12:00)
[2020-07-29] MEDS: Ibuprofen 100 MG/5 ML UDCUP PO SCH ×3 (12:46→23:20)
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
[2020-07-29] MEDS: Acetaminophen W/ Codeine 5 ML UDCUP PO SCH ×2 (18:02→23:20)
[2020-07-30] MEDS: Cyclobenzaprine 10 MG TAB PO PRN (02:03)
[2020-07-30] MEDS: Acetaminophen W/ Codeine 5 ML UDCUP PO SCH (05:30)
[2020-07-30] MEDS: Ibuprofen 100 MG/5 ML UDCUP PO SCH ×4 (05:30→23:25)
[2020-07-30 05:37] LABS: Hemoglobin 10.2 g/dL (14.0-18.0); Mean Corpuscular HGB CONC 33.8 g/dL (32.0-36.0); Mean Corpuscular Hemoglobin 32.1 pg (27.0-31.0); Platelet Count 244 thou/uL (130-400); RBC Distribution Width 11.1 % (11.5-14.5); Red Blood Cell (RBC) Count 3.17 mill/uL (4.70-6.10); White Blood Cell (WBC) Count 6.3 thou/uL (4.8-10.8)
[2020-07-30 05:58] LABS: Anion Gap 10 mmol/L (10-20); BUN (Urea Nitrogen) 9 mg/dL (8.9-20.6); CK (CPK) 1486 U/L (30-200); Calc. Creatinine Clearance 160 mL/min (70-130); Calcium 9.1 mg/dL (7.8-10.44); Carbon Dioxide 26 mmol/L (22-29); Chloride 109 mmol/L (98-107); Glucose 97 mg/dL (70-105); Potassium 3.7 mmol/L (3.5-5.1); Sodium 141 mmol/L (136-145)
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
--- NOTE | 2020-07-30 08:26 | RAD ---
EXAM: Chest one view: HISTORY: Follow-up pneumothorax COMPARISON: 07/29/2020 FINDINGS: Left chest tube in place. Stable subcutaneous emphysema. Heart size: Within normal limits. Lungs: Patchy bilateral interstitial and groundglass opacity changes particularly in the perihilar re gions with the little change from prior study. No significant left-sided pneumothorax demonstrated on this study. IMPRESSION: Left chest tube in place with subcutaneous emphysema, but no significant pneumothorax. Stable bilateral pulmonary parenchymal changes.
[2020-07-30] MEDS: Acetaminophen 650 MG/20.3 ML UDCUP PO SCH ×3 (09:31→21:54)
[2020-07-30] MEDS: Enoxaparin Sodium 30 MG/0.3 ML SYRINGE SC SCH ×2 (09:32→21:56)
[2020-07-30] MEDS: Gabapentin 300 MG CAP PO SCH ×3 (09:32→21:52)
[2020-07-30] MEDS: Famotidine 20 MG TAB PO SCH ×2 (09:32→21:52)
[2020-07-30] MEDS: Polyethylene Glycol 3350 17 GM Packet PO SCH (09:52)
[2020-07-30] MEDS: Senokot S 8.6-50 MG TAB PO SCH ×2 (09:52→21:52)
[2020-07-30] MEDS ORDERED: Acetaminophen W/ Codeine 5 ML UDCUP PO PRN (10:15)
[2020-07-30] MEDS: Nystatin 500,000 UNITS/5 ML UDCUP SSW SCH ×3 (13:10→21:54)
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
[2020-07-31] MEDS: Ibuprofen 100 MG/5 ML UDCUP PO SCH ×3 (06:32→17:43)
[2020-07-31] MEDS: Gabapentin 300 MG CAP PO SCH ×3 (07:59→21:01)
[2020-07-31] MEDS: Enoxaparin Sodium 30 MG/0.3 ML SYRINGE SC SCH ×2 (07:59→21:03)
[2020-07-31] MEDS: Acetaminophen 650 MG/20.3 ML UDCUP PO SCH ×3 (08:00→20:55)
[2020-07-31] MEDS: Famotidine 20 MG TAB PO SCH ×2 (08:00→21:01)
[2020-07-31] MEDS: Senokot S 8.6-50 MG TAB PO SCH (08:02)
[2020-07-31] MEDS: Polyethylene Glycol 3350 17 GM Packet PO SCH (08:02)
[2020-07-31] MEDS: Nystatin 500,000 UNITS/5 ML UDCUP SSW SCH ×4 (08:02→21:02)
--- NOTE | 2020-07-31 09:17 | RAD ---
Portable frontal chest radiograph: 07/31/2020 COMPARISON: 07/30/2020 HISTORY: Evaluate left-sided chest tube FINDINGS: Small volume relatively stable subcutaneous emphysema noted in the bilateral lateral chest barger and subclavian regions. There is a stable superior lateral left chest tube. No evidence for discrete pneumothorax is appreciated on either side. There is improved aeration within the right base and left perihilar region. No focal consolidation. Heart and mediastinal contours appear unremarkable. IMPRESSION: Portable chest radiograph as detailed above.
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
[2020-08-01] MEDS: Ibuprofen 100 MG/5 ML UDCUP PO SCH ×3 (00:17→15:08)
--- NOTE | 2020-08-01 07:50 | RAD ---
EXAM: XR Chest 1 View Portable PROVIDED CLINICAL HISTORY: Pneumothorax COMPARISON: 07/31/2020 FINDINGS: Cardiac and mediastinal silhouette is unchanged in appearance. Lungs appear clear. Interval removal o f left-sided chest tube. There is a tiny residual left apical pneumothorax. Subcutaneous emphysema is again seen. There is no evidence for pleural fluid. IMPRESSION: Tiny residual left apical pneumothorax.
[2020-08-01] MEDS: Gabapentin 300 MG CAP PO SCH (08:01)
[2020-08-01] MEDS: Famotidine 20 MG TAB PO SCH (08:01)
[2020-08-01] MEDS: Acetaminophen 650 MG/20.3 ML UDCUP PO SCH (08:02)
[2020-08-01] MEDS: Nystatin 500,000 UNITS/5 ML UDCUP SSW SCH (08:02)
[2020-08-01] MEDS: Enoxaparin Sodium 30 MG/0.3 ML SYRINGE SC SCH (08:02)
[2020-08-01] MEDS: Cyclobenzaprine 10 MG TAB PO PRN (11:43)
[2020-08-01 15:32] VITALS: BP 131/83; TEMP 98.2
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
== END 2020-08-01 15:50 | DRG 963 ==
LOC: ERS 21:18 → IMCU/EMU 23:06 → SJJU 07-29 17:17
PROVIDERS: ADMIT Specialist; ATTEND Specialist
PROC: 5A1945Z Respiratory Ventilation, 24-96 Consecutive Hours (ICD-10-PCS; principal; 2020-07-25)
PROC: 0W9B30Z Drainage of Left Pleural Cavity with Drainage Device, Percutaneous Approach (ICD-10-PCS; 2020-07-25)
PROC: 0BH17EZ Insertion of Endotracheal Airway into Trachea, Via Natural or Artificial Opening (ICD-10-PCS; 2020-07-25)
PROC: 08QPXZZ Repair Left Upper Eyelid, External Approach (ICD-10-PCS; 2020-07-25)
PROC: 0W9930Z Drainage of Right Pleural Cavity with Drainage Device, Percutaneous Approach (ICD-10-PCS; 2020-07-26)
PROC: 5A0935A Assistance with Respiratory Ventilation, Less than 24 Consecutive Hours, High Flow/Velocity Cannula (ICD-10-PCS; 2020-07-28)
DX: S27.321A Contusion of lung, unilateral, initial encounter (principal); J96.00 Acute respiratory failure, unspecified whether with hypoxia or hypercapnia; T79.6XXA Traumatic ischemia of muscle, initial encounter; S32.019A Unspecified fracture of first lumbar vertebra, initial encounter for closed fracture; S32.049A Unspecified fracture of fourth lumbar vertebra, initial encounter for closed fracture; S06.0X9A Concussion with loss of consciousness of unspecified duration, initial encounter; S22.41XA Multiple fractures of ribs, right side, initial encounter for closed fracture; S32.029A Unspecified fracture of second lumbar vertebra, initial encounter for closed fracture; B37.0 Candidal stomatitis; Z23 Encounter for immunization; Z20.822 Contact with and (suspected) exposure to COVID-19; S01.112A Laceration without foreign body of left eyelid and periocular area, initial encounter; F10.129 Alcohol abuse with intoxication, unspecified; Y90.8 Blood alcohol level of 240 mg/100 ml or more; F12.129 Cannabis abuse with intoxication, unspecified; S27.2XXA Traumatic hemopneumothorax, initial encounter; F17.210 Nicotine dependence, cigarettes, uncomplicated; S42.115A Nondisplaced fracture of body of scapula, left shoulder, initial encounter for closed fracture; S41.132A Puncture wound without foreign body of left upper arm, initial encounter; V49.9XXA Car occupant (driver) (passenger) injured in unspecified traffic accident, initial encounter; Y92.410 Unspecified street and highway as the place of occurrence of the external cause; Z78.1 Physical restraint status
CPT/HCPCS: 12011; 31500; 31624; 32551; 36415; 36416; 36600; 51702; 70450; 70486; 71045; 71260; 72125; 72170; 74177; 80048; 80053; 80306; 80307; 81003; 81015; 82550; 82805; 83605; 83690; 83735; 84100; 84484; 85025; 85027; 85610; 85730; 86850; 86900; 86901; 87070; 87205; 90471; 90715; 93005; 94002; 94003; 94760; 96365; 96366; 96368; 96375; 96376; 99292; G0390; J0295; J1650; J1940; J2001; J2060; J2250; J2704; J3010; J3475; J3480; J3490; J7030; J7050; J7070; J7620; Q9967; S0028; U0002

== ENCOUNTER 2020-08-11 09:53 | Outpatient (CLI) | payer BC | END 2020-08-11 09:54 | disposition home or self-care (01) | LOC: BICRAD 09:53 | PROVIDERS: ATTEND Surgery | DX: J93.9 Pneumothorax, unspecified (principal); S22.41XD Multiple fractures of ribs, right side, subsequent encounter for fracture with routine healing; J43.9 Emphysema, unspecified | CPT/HCPCS: 71046 ==

== ENCOUNTER 2020-08-13 10:51 | Outpatient (CLI) | payer BC | END 2020-08-13 10:52 | disposition home or self-care (01) | LOC: BICRAD 10:51 | PROVIDERS: ATTEND Neurological Surgery | DX: S32.039A Unspecified fracture of third lumbar vertebra, initial encounter for closed fracture (principal) | CPT/HCPCS: 72100 ==

== ENCOUNTER 2020-08-20 14:06 | Outpatient (CLI) | payer BC, OTHER | END 2020-08-20 14:07 | disposition home or self-care (01) | LOC: BICRAD 14:06 | PROVIDERS: ATTEND Surgery | DX: M79.632 Pain in left forearm (principal); V87.7XXD Person injured in collision between other specified motor vehicles (traffic), subsequent encounter ==

== ENCOUNTER 2020-09-25 10:26 | Outpatient (CLI) | payer BC | END 2020-09-25 10:27 | disposition home or self-care (01) | LOC: TBSIIMAG 10:26 | PROVIDERS: ATTEND Neurological Surgery | DX: S32.009A Unspecified fracture of unspecified lumbar vertebra, initial encounter for closed fracture (principal); G95.89 Other specified diseases of spinal cord | CPT/HCPCS: 72100 ==